=== PATIENT | female | born 1985 | race Hispanic/Latino ===

== ENCOUNTER 2019-11-10 08:26 | Inpatient (IN) | payer BC, OTHER ==
[2019-11-09 11:00] VITALS: BP 137/77
[2019-11-09 11:24] LABS: BASOPHILS % (AUTO) 0.4 % (0.0-5.0); EOSINOPHILS % (AUTO) 0.4 % (0.0-8.0); HEMATOCRIT 39.7 % (36-48); LYMPHOCYTES % (AUTO) 22.1 % (21.0-51.0); MEAN CORPUSCULAR HEMOGLOBIN 23.7 pg (27.0-33.0); MEAN CORPUSCULAR VOLUME 78.9 fL (79-99); MONOCYTES % (AUTO) 5.4 % (3.0-13.0); NEUTROPHILS % (AUTO) 71.2 % (40.0-77.0); PLATELET COUNT (AUTO) 361 K/uL (130-400); RED BLOOD CELL COUNT(AUTO) 5.03 MIL/uL (4.00-5.50); RED CELL DISTRIBUTION WIDTH 13.9 % (11.0-15.5); WHITE BLOOD COUNT (AUTO) 10.8 K/uL (4.8-10.8)
[~2019-11-10] VITALS: Ht 167.6 cm; Wt 104.2 kg
[2019-11-10] VITALS (22 sets, daily range): BP systolic 95–144; BP diastolic 53–79
[~2019-11-10 08:26] MED LIST: CALDOLOR 800MG+NS 250ML 250 ML IV SCH; CEFAZOLIN 3GM /D5W 100ML 100 ML IV SCH; ESCI5TAB10 PO; LACTATED RINGERS 1000ML 1,000 ML IV SCH; TRAN650T5 PO
[2019-11-10] MEDS: CEFAZOLIN SODIUM 1 GM VIAL IVP SCH ×2 (09:27→13:10)
[2019-11-10] MEDS ORDERED: MIDAZOLAM HCL 1 MG/ML 2ML VIAL ONE (12:51)
[2019-11-10] MEDS ORDERED: ONDANSETRON HCL 4 MG/2 ML VIAL ONE (12:51)
[2019-11-10] MEDS ORDERED: KETAMINE 50MG/ML SYRINGE 50 MG/ML DISP.SYRIN IV ONE (12:53)
[2019-11-10] MEDS ORDERED: ROCURONIUM 10MG/1ML SYR 10 MG/ML ML ONE (12:55)
[2019-11-10] MEDS ORDERED: PROPOFOL 10 MG/ML 20ML VIAL IV ONE (12:58)
[2019-11-10] MEDS ORDERED: FENTANYL CITRATE PF 50 MCG/1 ML 5ML AMP IV ONE ×2 (13:03→13:42)
[2019-11-10] MEDS ORDERED: NEOSTIGMINE 5MG/5ML SYR IV ONE (14:05)
[2019-11-10] MEDS ORDERED: GLYCOPYRROLATE 1 MG/5 ML SYRINGE ONE (14:05)
[2019-11-10] MEDS ORDERED: DEXTROSE 5 %-0.45 % NACL 1,000 ML IV PRN (14:28)
[2019-11-10] MEDS ORDERED: ACETAMINOPHEN-CODEINE 300/30MG TAB PO PRN ×2 (14:30)
[2019-11-10] MEDS ORDERED: SIMETHICONE 80 MG TAB.CHEW PO PRN (14:30)
[2019-11-10] MEDS ORDERED: ONDANSETRON HCL 4 MG/2 ML VIAL IVP PRN (14:30)
[2019-11-10] MEDS ORDERED: MEPERIDINE-PF 75 MG/ML SYG IM PRN (14:30)
[2019-11-10] MEDS ORDERED: BISACODYL 10 MG SUPP.RECT RC PRN ×2 (14:30)
[2019-11-10] MEDS ORDERED: IBUPROFEN 800 MG TAB PO SCH (14:30)
[2019-11-10] MEDS ORDERED: HYDROCODONE/ACETAMINOPHEN 5/325 MG TAB PO PRN (14:30)
[2019-11-10] MEDS ORDERED: PROMETHAZINE HCL 25 MG/ML 1ML AMPULE IM PRN ×2 (14:30)
[2019-11-10] MEDS ORDERED: DOCUSATE SODIUM 100 MG CAP PO PRN (14:30)
[2019-11-10] MEDS ORDERED: DIPH,PERTUSS(ACELL),TET VAC/PF 0.5 ML VIAL IM SCH (14:30)
[2019-11-10] MEDS ORDERED: FENTANYL CITRATE PF 50 MCG/1 ML 2ML VIAL ONE (15:15)
[2019-11-10] MEDS ORDERED: HYDROMORPHONE 1 MG/1 ML AMP ONE ×2 (15:34→15:45)
[2019-11-10] MEDS ORDERED: LORAZEPAM 2 MG/ML 1 ML VIAL IVP PRN (16:30)
[2019-11-10] MEDS ORDERED: LORAZEPAM 2 MG/ML 1 ML VIAL ONE (16:36)
[2019-11-10] MEDS ORDERED: MEPERIDINE-PF 50 MG/ML SYG ONE (20:16)
[2019-11-10] MEDS ORDERED: MEPERIDINE-PF 25 MG/ML SYG ONE (20:16)
[2019-11-10] MEDS ORDERED: MEPERIDINE-PF 25 MG/ML SYG IV PRN ×2 (20:30)
[2019-11-10] MEDS ORDERED: MEPERIDINE-PF 50 MG/ML SYG IM PRN ×2 (20:30)
[2019-11-10] MEDS: CALDOLOR 800MG+NS 250ML 250 ML IV SCH (22:09)
[2019-11-11 03:25] VITALS: BP 114/59
[2019-11-11] MEDS: CALDOLOR 800MG+NS 250ML 250 ML IV SCH (06:04)
--- NOTE | 2019-11-11 06:50 | NUR ---
CLAY JOSEPH DC'Roshan, PT INST TO CALL FOR ASSIST BEFORE GETTING OUT OF BED; VERBALIZED UNDERSTANDING.
[2019-11-11 07:10] VITALS: BP 128/69
[2019-11-11 07:37] LABS: HEMATOCRIT 33.2 % (36-48); MEAN CORPUSCULAR HEMOGLOBIN 23.9 pg (27.0-33.0); MEAN CORPUSCULAR HGB CONC 30.4 g/dL (32.0-36.0); MEAN CORPUSCULAR VOLUME 78.7 fL (79-99); PLATELET COUNT (AUTO) 344 K/uL (130-400); RED BLOOD CELL COUNT(AUTO) 4.22 MIL/uL (4.00-5.50); RED CELL DISTRIBUTION WIDTH 14.1 % (11.0-15.5); WHITE BLOOD COUNT (AUTO) 12.6 K/uL (4.8-10.8)
[2019-11-11] MEDS: SIMETHICONE 80 MG TAB.CHEW PO PRN ×3 (08:36→21:33)
[2019-11-11] MEDS: DOCUSATE SODIUM 100 MG CAP PO PRN ×2 (08:36→21:33)
[2019-11-11 11:20] VITALS: BP 113/72
--- NOTE | 2019-11-11 12:35 | NUR ---
ROUNDING DR. OLGA LECHUGA AT BEDSIDE TO ASSESS AND TALK TO PT.
[2019-11-11] MEDS: IBUPROFEN 800 MG TAB PO SCH ×2 (14:15→21:35)
[2019-11-11 15:37] VITALS: BP 117/57
--- NOTE | 2019-11-11 19:00 | NUR ---
PT. AMBULATED IN HALLWAY FOR 20 MINUTES, WELL TOLERATED.
[2019-11-11 20:20] VITALS: BP 101/56
--- NOTE | 2019-11-11 22:45 | NUR ---
PT. AMBULATED IN HALLWAY FOR 34 MINUTES, WELL TOLERATED.
[2019-11-11 23:00] VITALS: BP 99/59
[2019-11-12 03:50] VITALS: BP 112/63
[2019-11-12] MEDS: IBUPROFEN 800 MG TAB PO SCH (06:05)
[2019-11-12 07:43] VITALS: BP 124/77
--- NOTE | 2019-11-12 08:00 | NUR ---
PATIENT UP AMBULATING IN HALLWAY WITH SPOUSE AND DENIES PAIN.
[2019-11-12] MEDS: SIMETHICONE 80 MG TAB.CHEW PO PRN (09:15)
[2019-11-12] MEDS: DOCUSATE SODIUM 100 MG CAP PO PRN (09:15)
--- NOTE | 2019-11-12 10:15 | NUR ---
DISCHARGE INSTRUCTIONS GIVEN AND PATIENT VERBALIZED UNDERSTANDING INSTRUCTIONS GIVEN. PATIENT WAS GIVEN SCRIPT ON LAST DOCTOR'S VISIT FOR PAIN MANAGEMENT AT HOME.
--- NOTE | 2019-11-12 10:30 | NUR ---
PATIENT WAS TAKEN VIA W/C TO FAMILY VEHICLE IN STABLE CONDITION. PATIENT DENIES PAIN AND STATES PASSING GAS BUT NO BM. PRUNE JUICE WAS GIVEN TO PATIENT PRIOR TO DISCHARGE. PATIENT DISCHARGED TO SPOUSE.
== END 2019-11-12 10:30 | disposition home or self-care (01) | DRG 743 ==
LOC: DAHIP 08:26 → EDSTATUS 09:59 → WSH 16:20
PROVIDERS: ADMIT Obstetrics & Gynecology; ATTEND Obstetrics & Gynecology
PROC: 0UT10ZZ Resection of Left Ovary, Open Approach (ICD-10-PCS; 2019-11-10)
PROC: 0UB50ZZ Excision of Right Fallopian Tube, Open Approach (ICD-10-PCS; 2019-11-10)
PROC: 0UT90ZZ Resection of Uterus, Open Approach (ICD-10-PCS; principal; 2019-11-10 12:51)
PROC: 0UT60ZZ Resection of Left Fallopian Tube, Open Approach (ICD-10-PCS; 2019-11-10 12:51)
DX: N92.1 Excessive and frequent menstruation with irregular cycle (principal); N83.202 Unspecified ovarian cyst, left side; N83.8 Other noninflammatory disorders of ovary, fallopian tube and broad ligament; K66.0 Peritoneal adhesions (postprocedural) (postinfection); N70.11 Chronic salpingitis; N85.4 Malposition of uterus
CPT/HCPCS: 36415; 85025; 85027; 86850; 86900; 86901; 90715; A4344; G0378; J0690; J1170; J1741; J2060; J2175; J2250; J2405; J2550; J2704; J2710; J3010; J3490; J7030; J7120